=== PATIENT | male | born 1970 | race African-American/Black ===

== ENCOUNTER 2017-05-14 19:13 | Emergency (ER) | payer OTHER ==
[~2017-05-14] VITALS: Ht 182.9 cm; Wt 62.0 kg
[~2017-05-14 19:13] MED LIST: AMLODIPINE BESY10 MG PO; AMLODIPINE BESYL5 MG PO; APLISOL5 TUB UNIT ID; ASPIR-LOW81 MG PO; AZOR 5/20 MG1 TABLET PO; Advil,Nuprin,Motrin PO; B-1100 MG PO; BISAC-EVAC10 MG PR; BISACODYL5 MG PO; BUTALB-APAP-CA1 EACH PO; BYSTOLIC10 MG PO; BYSTOLIC5 MG PO; CEFTIN250 MG PO; CENTRUM COMPLE1 EACH PO; CHLORDIAZEPOXID25 MG PO; CLONIDINE HCL0.1 MG PO; CODEINE SULFATE30 MG PO; COLACE100 MG PO; DIOVAN80 MG PO; DULCOLAX5 MG PO; EXFORGE 5/321 TABLET PO; FLEXERIL10 MG PO; MAG-AL PLUS SUS30 ML PO; MILK OF MAGNESI10 ML PO; MOTRIN600 MG PO; NAPROSYN500 MG PO; NICOTINE PATCH1 EAC2 TD; NICOTINE PATCH1 EACH TD; OMEPRAZOLE20 MG PO; ONDANSETRON ODT4 MG PO; ONDANSETRON4 MG/2 ML IV; PRILOSEC20 MG PO; PROMETHAZI25 MG/1 M2 IM; PROMETHAZINE HC25 M1 PO; SALINE FLUSH 5 M5 ML IV; SENNA8.6 MG PO; THERAGRAN1 TABLET PO; TYLENOL325 M1 PO; TYLENOL650 MG PR; ULTRAM50 MG PO; VITAMIN B-1100 MG PO; VITAMIN E1000 UNI1 PO; ZOLOFT50 MG PO; ZOLPIDEM TARTRAT5 MG PO
[2017-05-14 21:27] LABS: BASOPHIL COUNT 0.1 K/uL (0-0.1); EOSINOPHIL (%) 1.3 % (0-5); EOSINOPHIL COUNT 0.1 K/uL (0-0.3); HEMATOCRIT 40.5 % (38.0-50.0); HEMOGLOBIN 13.7 G/DL (12.5-16.6); IMMATURE GRANULOCYTE (%) 0.3 % (0.0-0.7); LYMPHOCYTE (%) 31.3 % (15-42); LYMPHOCYTE COUNT 2.8 K/uL (1.0-2.8); MCH 29.7 PG (29.0-34.0); MCHC 33.8 G/DL (30.0-36.0); MCV 87.9 FL (86-99); MONOCYTE (%) 10.3 % (3-12); MONOCYTE COUNT 0.9 K/uL (0-0.8); NEUTROPHIL (%) 55.8 % (45-76); PLATELET COUNT 431 K/uL (156-360); RBC DIS.WIDTH-CV 17.3 % (11.8-14.6); RBC DIS.WIDTH-SD 55.6 % (39-53); RED BLOOD COUNT 4.61 M/uL (4.00-5.50); WHITE BLOOD COUNT 8.9 K/uL (4.1-10.2)
[2017-05-14 21:48] LABS: CHLORIDE 106 mEq/L (99-109); SODIUM 142 mEq/L (136-147)
[2017-05-14 21:50] LABS: GLUCOSE 94 mg/dL (70-99)
[2017-05-14 21:54] LABS: CREATININE 0.7 mg/dL (0.6-1.3); GFR ESTIMATE (CALCULATED) > 59 mL/min/ (58.99-99999)
[2017-05-14 21:55] LABS: UREA NITROGEN (BUN) 11 mg/dL (9-23)
[2017-05-14 22:02] LABS: TROP-I INTERPRETATION NEGATIVE; TROPONIN-I < 0.01 ng/mL (0.0-0.30)
[2017-05-14 23:29] VITALS: BP 127/90
== END 2017-05-14 23:30 | disposition home or self-care (01) ==
LOC: EME → EDBD 19:13 → EME 19:13
PROVIDERS: Emergency Medicine
DX: R07.9 Chest pain, unspecified (principal); R10.9 Unspecified abdominal pain; R42 Dizziness and giddiness; G89.29 Other chronic pain; M79.609 Pain in unspecified limb; M54.9 Dorsalgia, unspecified; I10 Essential (primary) hypertension; Z87.820 Personal history of traumatic brain injury; F17.200 Nicotine dependence, unspecified, uncomplicated
CPT/HCPCS: 71046; 80048; 84484; 85025; 93005; 99281; 99285

== ENCOUNTER 2017-05-18 18:18 | Emergency (ER) | payer SELFPAY ==
[~2017-05-18] VITALS: Ht 182.9 cm; Wt 60.0 kg
[2017-05-18 22:39] VITALS: BP 126/90
== END 2017-05-18 22:41 | disposition home or self-care (01) ==
LOC: EME 18:18
DX: M79.1 Myalgia (principal); R51 Headache; M25.552 Pain in left hip; W01.0XXA Fall on same level from slipping, tripping and stumbling without subsequent striking against object, initial encounter; K21.9 Gastro-esophageal reflux disease without esophagitis; J45.909 Unspecified asthma, uncomplicated; I10 Essential (primary) hypertension; F41.9 Anxiety disorder, unspecified; Z96.642 Presence of left artificial hip joint; Z87.820 Personal history of traumatic brain injury; F17.200 Nicotine dependence, unspecified, uncomplicated
CPT/HCPCS: 73502; 99281; 99284

== ENCOUNTER 2017-07-14 03:59 | Emergency (ER) | payer SELFPAY ==
[~2017-07-14] VITALS: Ht 185.4 cm; Wt 63.6 kg
[2017-07-14 05:49] LABS: HEMATOCRIT 37.5 % (38.0-50.0); MCHC 34.7 G/DL (30.0-36.0); MCV 89.3 FL (86-99); PLATELET COUNT 293 K/uL (156-360); RBC DIS.WIDTH-CV 18.2 % (11.8-14.6); WHITE BLOOD COUNT 7.6 K/uL (4.1-10.2)
[2017-07-14 05:59] LABS: CHLORIDE 106 mEq/L (99-109); POTASSIUM 3.7 mEq/L (3.7-5.4); SODIUM 145 mEq/L (136-147)
[2017-07-14 06:01] LABS: GLUCOSE 95 mg/dL (70-99)
[2017-07-14 06:05] LABS: CREATININE 0.7 mg/dL (0.6-1.3); GFR ESTIMATE (CALCULATED) > 59 mL/min/ (58.99-99999)
[2017-07-14 06:06] LABS: UREA NITROGEN (BUN) 8 mg/dL (9-23)
[2017-07-14 06:11] LABS: TROP-I INTERPRETATION NEGATIVE; TROPONIN-I < 0.01 ng/mL (0.0-0.30)
[2017-07-14 07:08] VITALS: BP 116/92
== END 2017-07-14 07:10 | disposition home or self-care (01) ==
LOC: EME 03:59
PROVIDERS: Emergency Medicine
DX: R07.9 Chest pain, unspecified (principal); R05 Cough; I10 Essential (primary) hypertension; J45.909 Unspecified asthma, uncomplicated; F17.200 Nicotine dependence, unspecified, uncomplicated
CPT/HCPCS: 71045; 80048; 84484; 85027; 93005; 94640; 99281; 99284

== ENCOUNTER 2017-08-24 01:36 | Emergency (ER) | payer SELFPAY ==
[~2017-08-24] VITALS: Ht 182.9 cm; Wt 72.0 kg
[2017-08-24 02:03] LABS: HEMATOCRIT 35.7 % (38.0-50.0); HEMOGLOBIN 12.5 G/DL (12.5-16.6); MCH 31.6 PG (29.0-34.0); MCV 90.2 FL (86-99); PLATELET COUNT 355 K/uL (156-360); RBC DIS.WIDTH-CV 17.1 % (11.8-14.6); RBC DIS.WIDTH-SD 56.8 % (39-53); RED BLOOD COUNT 3.96 M/uL (4.00-5.50); WHITE BLOOD COUNT 7.4 K/uL (4.1-10.2)
[2017-08-24 02:14] LABS: CHLORIDE 109 mEq/L (99-109); SODIUM 142 mEq/L (136-147)
[2017-08-24 02:15] LABS: GLUCOSE 89 mg/dL (70-99)
[2017-08-24 02:19] LABS: CREATININE 0.8 mg/dL (0.6-1.3); GFR ESTIMATE (CALCULATED) > 59 mL/min/ (58.99-99999); SERUM ETHYL ALCOHOL 173 mg/dL
[2017-08-24 02:20] LABS: UREA NITROGEN (BUN) 21 mg/dL (9-23)
[2017-08-24 02:22] LABS: LIPASE 101 U/L (1.0-51.0)
[2017-08-24 02:26] LABS: TROP-I INTERPRETATION NEGATIVE; TROPONIN-I < 0.01 ng/mL (0.0-0.30)
[2017-08-24 04:52] LABS: TROP-I INTERPRETATION NEGATIVE; TROPONIN-I < 0.01 ng/mL (0.0-0.30)
[2017-08-24 07:23] VITALS: BP 147/108
== END 2017-08-24 07:24 | disposition home or self-care (01) ==
LOC: EME → EDBD 01:36 → EME 07:24
PROVIDERS: Emergency Medicine
DX: R07.89 Other chest pain (principal); I71.2 Thoracic aortic aneurysm, without rupture; F10.129 Alcohol abuse with intoxication, unspecified; Y90.6 Blood alcohol level of 120-199 mg/100 ml; I10 Essential (primary) hypertension; F41.9 Anxiety disorder, unspecified; F17.200 Nicotine dependence, unspecified, uncomplicated; J45.909 Unspecified asthma, uncomplicated; K21.9 Gastro-esophageal reflux disease without esophagitis; Z86.69 Personal history of other diseases of the nervous system and sense organs; Z96.642 Presence of left artificial hip joint; Z87.820 Personal history of traumatic brain injury
CPT/HCPCS: 71046; 71275; 80048; 83690; 84484; 85027; 85379; 93005; 99281; 99285; G0480; J7030

== ENCOUNTER 2017-09-11 22:02 | Emergency (ER) | payer SELFPAY ==
[~2017-09-11] VITALS: Ht 182.9 cm; Wt 98.1 kg
[2017-09-11 22:46] LABS: BASOPHIL (%) 0.9 % (0-1); BASOPHIL COUNT 0.1 K/uL (0-0.1); EOSINOPHIL (%) 1.2 % (0-5); EOSINOPHIL COUNT 0.1 K/uL (0-0.3); HEMATOCRIT 37.5 % (38.0-50.0); IMMATURE GRANULOCYTE (%) 0.4 % (0.0-0.7); LYMPHOCYTE (%) 30.4 % (15-42); LYMPHOCYTE COUNT 2.5 K/uL (1.0-2.8); MCH 30.7 PG (29.0-34.0); MCHC 34.7 G/DL (30.0-36.0); MCV 88.7 FL (86-99); MONOCYTE (%) 10.4 % (3-12); MONOCYTE COUNT 0.9 K/uL (0-0.8); NEUTROPHIL (%) 56.7 % (45-76); NEUTROPHIL COUNT 4.6 K/uL (1.8-6.4); PLATELET COUNT 410 K/uL (156-360); RBC DIS.WIDTH-CV 15.4 % (11.8-14.6); RBC DIS.WIDTH-SD 50.2 % (39-53); RED BLOOD COUNT 4.23 M/uL (4.00-5.50); WHITE BLOOD COUNT 8.2 K/uL (4.1-10.2)
[2017-09-11 22:59] LABS: ALBUMIN 3.6 g/dL (3.2-4.8); CHLORIDE 107 mEq/L (99-109); POTASSIUM 3.7 mEq/L (3.7-5.4); PTT 31.8 SEC (25-37); SODIUM 142 mEq/L (136-147)
[2017-09-11 23:01] LABS: GLUCOSE 88 mg/dL (70-99)
[2017-09-11 23:02] LABS: TOTAL PROTEIN 7.5 g/dL (6.4-8.3)
[2017-09-11 23:03] LABS: TOTAL BILIRUBIN 0.2 mg/dL (0.0-1.0)
[2017-09-11 23:12] LABS: TROP-I INTERPRETATION NEGATIVE; TROPONIN-I < 0.01 ng/mL (0.0-0.30)
[2017-09-11 23:31] LABS: ALKALINE PHOSPHATASE 75 IU/L (3-129); CREATININE 0.8 mg/dL (0.6-1.3); GFR ESTIMATE (CALCULATED) > 59 mL/min/ (58.99-99999)
[2017-09-11 23:32] LABS: UREA NITROGEN (BUN) 16 mg/dL (9-23)
[2017-09-11 23:33] LABS: AST (GOT) 16 IU/L (2-34); DIRECT BILIRUBIN 0.1 mg/dL (0.0-0.3)
[2017-09-11 23:34] LABS: ALT (GPT) 7 IU/L (3-49); LIPASE 44 U/L (1.0-51.0)
[2017-09-12 01:43] LABS: TROP-I INTERPRETATION NEGATIVE; TROPONIN-I < 0.01 ng/mL (0.0-0.30)
[2017-09-12 02:02] VITALS: BP 128/90
== END 2017-09-12 02:03 | disposition home or self-care (01) ==
LOC: EME → EDBD 22:02 → EME 09-12 02:03
PROVIDERS: Emergency Medicine
DX: R07.9 Chest pain, unspecified (principal); R10.13 Epigastric pain; I10 Essential (primary) hypertension; F41.9 Anxiety disorder, unspecified; J45.909 Unspecified asthma, uncomplicated; K21.9 Gastro-esophageal reflux disease without esophagitis; F17.200 Nicotine dependence, unspecified, uncomplicated; Z96.642 Presence of left artificial hip joint; Z87.820 Personal history of traumatic brain injury; Z86.69 Personal history of other diseases of the nervous system and sense organs
CPT/HCPCS: 71046; 80048; 80076; 83690; 83880; 84484; 85025; 85610; 85730; 93005; 99281; 99284; J1200; J2765